=== PATIENT | female | born 1980 | race Caucasian/White ===

== ENCOUNTER 2016-12-04 19:23 | Emergency (ER) | payer MEDICAID, OTHER ==
[~2016-12-04] VITALS: Ht 167.6 cm; Wt 92.0 kg
[~2016-12-04 19:23] MED LIST: BENZ100 PO; DIFL150T PO; GLIP10TA6 PO; GLUC1000 PO; ZITH250T PO
[2016-12-04 19:25] VITALS: BP 131/72; PULSE 90; RESP 16; TEMP 97.8; O2SAT 97
[2016-12-04] MEDS ORDERED: GLIP10TA6 PO (19:39)
[2016-12-04] MEDS ORDERED: NOVO7030P2 SQ (19:39)
[2016-12-04] MEDS ORDERED: METF1000 PO (19:39)
[2016-12-04] MEDS ORDERED: KETOROLAC TROMETHAMINE 60 MG/2 ML (IM) VIAL IM ONE (19:45)
[2016-12-04] MEDS ORDERED: ACETAMINOPHEN/CODEINE 300 MG/30 MG TAB PO ONE (19:45)
[2016-12-04] MEDS ORDERED: ONDANSETRON ODT 4 MG TAB PO ONE (19:45)
[2016-12-04] MEDS ORDERED: ORPHENADRINE INJ 60 MG/2 ML AMP IM ONE (19:45)
--- NOTE | 2016-12-04 19:48 | PD ---
HPI Chief Complaint: Pain: Acute or Chronic Time Seen by Provider: 19:38 Travel History International Travel<30 days: No Contact w/Intl Traveler<30days: No Traveled to known affect area: No History of Present Illness HPI This is an insulin-dependent diabetic woman who presents for evaluation of neck pain. Symptoms started 2 weeks ago. The pain in the neck radiates down the left arm into the left third finger. The pain is a sharp/shooting pain that is worse with overhead reaching and movement of the neck. She denies any major trauma. She does not recall any specific mechanism of injury however she does not the chest to lift her young child on a regular basis. She has tried using [id number] ibuprofen but symptoms persisted. She saw her primary care physician yesterday who prescribed her prescription strength ibuprofen as well as a muscle relaxant. She has not yet picked these medications up from the pharmacy. She presents now with continued pain. She denies any weakness, chest pain, shortness of breath, focal neurologic deficit. She has no other complaints at this time. [facility] Past Medical History Diabetes: Yes (INSULIN DEPENDENT/METFORMIN/GLIPIZIDE) Patient Takes Glucophage: Yes ?: Not : 4 Para: 3 Miscarriage: 1 Past Surgical History Section: Yes (x2 ) Social History Alcohol Use: No Tobacco Use: No Substance Use: No Allergies-Medications (Allergen,Severity, Reaction): Coded Allergies: No Known Allergies (Unverified , 12/04/16) Reported Meds & Prescriptions Reported Meds & Active Scripts Active Reported Novolin 70-30 Inj (Insulin Human Isoph/Insulin Regular) 1,000 Unit/10 Ml Vial 13 Units SQ AM Metformin (Metformin HCl) 1,000 Mg Tab 1,000 Mg PO BID With a meal Glipizide 10 Mg Tab 10 Mg PO BIDAC Take 30 minutes before a meal Review of Systems Except as stated in HPI: all other systems reviewed are Neg Physical Exam Narrative GENERAL: Well-developed well-nourished female in no acute distress SKIN: Warm and dry. HEAD: Atraumatic. Normocephalic. EYES: Pupils equal and round. No scleral icterus. No injection or drainage. ENT: No nasal bleeding or discharge. Mucous membranes pink and moist. NECK: Trachea midline. No JVD. No lymphadenopathy. CARDIOVASCULAR: Regular rate and rhythm. No murmur appreciated. RESPIRATORY: No accessory muscle use. Clear to auscultation. Breath sounds equal bilaterally. GASTROINTESTINAL: Abdomen soft, non-tender, nondistended. MUSCULOSKELETAL: No obvious deformities. There is tenderness to palpation along the cervical paravertebral musculature. The patient has normal muscle strength in the upper extremities, normal leadership development instructor strength, 5 out of 5 muscle strength in flexion and extension, shoulder abduction and adduction. Negative empty can test. There is no upper extremity edema. 2+ radial pulses bilaterally, capillary refill less than 2 seconds in all fingers. NEUROLOGICAL: Awake and alert. No obvious cranial nerve deficits. Motor grossly within normal limits. Normal speech. Data Data Last Documented VS Vital Signs Date Time Temp Pulse Resp B/P Pulse Ox O2 Delivery O2 Flow Rate FiO2 12/04/16 19:25 97.8 90 16 131/72 97 Room Air Orders Ketorolac Inj (Toradol Inj) (12/04/16 19:45) Orphenadrine Inj (Norflex Inj) (12/04/16 19:45) Acetamin-Codeine 300-30 Mg (Tylenol-Code (12/04/16 19:45) Ondansetron Odt (Zofran Odt) (12/04/16 19:45) MDM Medical Decision Making Medical Screen Exam Complete: Yes Emergency Medical Condition: Yes Medical Record Reviewed: Yes Differential Diagnosis Herniated nucleus pulposus, cervical strain, thoracic outlet syndrome, muscle spasm, rotator cuff pathology Narrative Course 35-year-old female with a 2 week duration of neck pain that radiates down the left arm, worse with use of the left arm. Her history and examination findings are consistent with cervical radiculopathy. There was no trauma to suggest bony pathology. She has no weakness to suggest a central spinal cord lesion. The plan would be to treat the patient symptomatically here with NSAIDs, muscle relaxants, Tylenol with Codeine. Steroids will be avoided given her history of insulin-dependent diabetes. She is encouraged to follow-up with her primary care physician to discuss further treatment if symptoms persist such as physical therapy versus outpatient MRI imaging. She is stable for discharge. Diagnosis Primary Impression: Cervical radiculopathy Additional Instructions: Use the medications that have been prescribed by your primary care physician. Follow-up with your primary care physician in one to 2 weeks if symptoms persist. Return for any emergent medical conditions. Med/Other Pt SpecificInfo: No Change to Meds Disposition: 01 DISCHARGE HOME Condition: Stable Aguilar Lopez Dec 04, 2016 19:48
[2016-12-04 20:31] VITALS: RESP 18
== END 2016-12-04 20:32 | disposition home or self-care (01) ==
LOC: NEPB 19:23
DX: M54.12 Radiculopathy, cervical region (principal); E11.9 Type 2 diabetes mellitus without complications; Z79.4 Long term (current) use of insulin
CPT/HCPCS: 96372; 99283; J1885; J2360

== ENCOUNTER 2017-01-05 18:22 | Emergency (ER) | payer MEDICAID, OTHER ==
[~2017-01-05] VITALS: Ht 167.6 cm; Wt 88.6 kg
[~2017-01-05 18:22] MED LIST changes: -BENZ100 PO; -DIFL150T PO; -GLUC1000 PO; +METF1000 PO; +NOVO7030P2 SQ; -ZITH250T PO
[2017-01-05 18:23] VITALS: BP 167/92; PULSE 106; RESP 14; TEMP 98.2; O2SAT 97
--- NOTE | 2017-01-05 18:57 | RADRPT ---
EXAM DATE/TIME: 01/05/2017 18:50 [facility] COMPARISON: No previous studies available for comparison. INDICATIONS : Chest pain. MEDICAL HISTORY : None. SURGICAL HISTORY : None. ENCOUNTER: Initial ACUITY: 1 week PAIN SCORE: 5/10 LOCATION: Bilateral chest FINDINGS: A single view of the chest demonstrates the lungs to be symmetrically aerated without evidence of mas s, infiltrate or effusion. The cardiomediastinal contours are unremarkable. Osseous structures are intact. CONCLUSION: No acute disease. Yash Baird MD on January 05, 2017 at 18:55 Board Certified Radiologist. This report was verified electronically.
--- NOTE | 2017-01-05 19:37 | PD ---
HPI Chief Complaint: Chest Pain Time Seen by Provider: 19:33 Travel History International Travel<30 days: No Contact w/Intl Traveler<30days: No Traveled to known affect area: No History of Present Illness HPI Patient is a 36-year-old female presenting to emergency department for evaluation of elevated blood pressure readings as well as chest pressure. Patient states the chest pressure started on 5 days ago. She states that it comes and goes it is not exacerbated by activity. She does report some shortness of breath at night as well as a frontal headache. This is also intermittent. Patient states that her blood pressure readings at home have been in the upper 130s over 90s. She does report a history of type 2 diabetes, she reports losing 15 pounds and her fasting blood sugars have been in the 70s to 80s in the morning. She recently saw her primary doctor Dr. Vargas. She has not discussed the blood pressure readings or the chest pain with him. She states at worst the pain is an 8 out of 10, she also reports palpitations that are intermittent. PFSH Past Medical History Diabetes: Yes (INSULIN DEPENDENT/METFORMIN/GLIPIZIDE) GERD: Yes Headaches: Yes ?: Not LMP: 12/24/2016 : 4 Para: 3 Miscarriage: 1 Past Surgical History Section: Yes (x2 ) Social History Alcohol Use: No Tobacco Use: No Substance Use: No Allergies-Medications (Allergen,Severity, Reaction): Coded Allergies: No Known Allergies (Unverified , 01/05/17) Reported Meds & Prescriptions Reported Meds & Active Scripts Active Reported Metformin (Metformin HCl) 1,000 Mg Tab 1,000 Mg PO BID With a meal Glipizide 10 Mg Tab 10 Mg PO BIDAC Take 30 minutes before a meal Review of Systems Except as stated in HPI: all other systems reviewed are Neg Cardiovascular: Positive: Chest Pain or Discomfort, Palpitations Respiratory: Positive: Shortness of Breath (occasionally at night) Physical Exam Narrative GENERAL: Well-developed, well-nourished, alert female. Resting comfortably in no acute distress. SKIN: Warm and dry. HEAD: Atraumatic. Normocephalic. EYES: Pupils equal and round. No scleral icterus. No injection or drainage. ENT: No nasal bleeding or discharge. Mucous membranes pink and moist. NECK: Trachea midline. No JVD. CARDIOVASCULAR: Regular rate and rhythm. No murmur appreciated. RESPIRATORY: No accessory muscle use. Clear to auscultation. Breath sounds equal bilaterally. GASTROINTESTINAL: Abdomen soft, non-tender, nondistended. Hepatic and splenic margins not palpable. MUSCULOSKELETAL: No obvious deformities. No clubbing. No cyanosis. No edema. NEUROLOGICAL: Awake and alert. No obvious cranial nerve deficits. Motor grossly within normal limits. Normal speech. PSYCHIATRIC: Appropriate mood and affect; insight and judgment normal. Data Data Last Documented VS Vital Signs Date Time Temp Pulse Resp B/P Pulse Ox O2 Delivery O2 Flow Rate FiO2 01/05/17 22:20 77 16 142/86 99 Room Air 01/05/17 18:23 98.2 Orders Electrocardiogram (01/05/17 18:28) Complete Blood Count With Diff (01/05/17 18:28) Basic Metabolic Panel (Bmp) (01/05/17 18:28) Ckmb (Isoenzyme) Profile (01/05/17 18:28) Troponin I (01/05/17 18:28) Chest, Single Ap (01/05/17 18:28) Thyroid Stimulating Hormone (01/05/17 19:17) Al-Mag Hy-Si 40-40-4 Mg/Ml Liq (Mag-Al P (01/05/17 22:45) Lidocaine 2% Viscous (Xylocaine 2% Visco (01/05/17 22:45) Labs Laboratory Tests Test 01/05/17 20:05 White Blood Count 10.8 TH/MM3 Red Blood Count 4.44 MIL/MM3 Hemoglobin 12.7 GM/DL Hematocrit 36.8 % Mean Corpuscular Volume 82.9 FL Mean Corpuscular Hemoglobin 28.6 PG Mean Corpuscular Hemoglobin 34.5 % Concent Red Cell Distribution Width 14.1 % Platelet Count 334 TH/MM3 Mean Platelet Volume 7.9 FL Neutrophils (%) (Auto) 63.1 % Lymphocytes (%) (Auto) 31.9 % Monocytes (%) (Auto) 4.3 % Eosinophils (%) (Auto) 0.4 % Basophils (%) (Auto) 0.3 % Neutrophils # (Auto) 6.8 TH/MM3 Lymphocytes # (Auto) 3.5 TH/MM3 Monocytes # (Auto) 0.5 TH/MM3 Eosinophils # (Auto) 0.0 TH/MM3 Basophils # (Auto) 0.0 TH/MM3 CBC Comment DIFF FINAL Differential Comment Sodium Level 139 MEQ/L Potassium Level 3.5 MEQ/L Chloride Level 104 MEQ/L Carbon Dioxide Level 27.8 MEQ/L Anion Gap 7 MEQ/L Blood Urea Nitrogen 6 MG/DL Creatinine 0.50 MG/DL Estimat Glomerular Filtration 140 ML/MIN Rate Random Glucose 113 MG/DL Calcium Level 9.3 MG/DL Total Creatine Kinase 84 U/L Troponin I LESS THAN 0.02 NG/ML Thyroid Stimulating Hormone 1.380 uIU/ML 3rd Gen [facility] Medical Decision Making Medical Screen Exam Complete: Yes Emergency Medical Condition: Yes Interpretation(s) Last Impressions Chest X-Ray 01/05/17 1828 Signed Impressions: Service Date/Time: Thursday, January 05, 2017 18:50 - CONCLUSION: No acute disease. Yash Baird MD Vital Signs Date Time Temp Pulse Resp B/P Pulse Ox O2 Delivery O2 Flow Rate FiO2 01/05/17 18:23 98.2 106 14 167/92 97 Room Air Differential Diagnosis Atypical chest pain versus AMI versus palpitations versus anxiety versus other Narrative Course Patient is a 36-year-old female presenting to the emergency department for evaluation of chest pressure and elevated blood pressure readings. Patient has not had a formal diagnosis of hypertension. Her blood pressure readings have been in the 130s systolic. She presented due to the chest pressure. Labs and imaging ordered and pending. EKG shows normal sinus rhythm with a rate of 87. Chest x-ray shows no acute disease. Patient will be transferred to medical bed when available. Patient is resting comfortably currently. Carol Riddle Jan 05, 2017 19:37
[2017-01-05 20:30] LABS: AUTOMATED NEUTROPHIL # 6.8 TH/MM3 (1.8-7.7); BASOPHIL % 0.3 % (0.0-2.0); EOSINOPHIL % 0.4 % (0.0-4.0); HEMATOCRIT 36.8 % (35.0-46.0); HEMO FLAGS DIFF FINAL; LYMPH % 31.9 % (9.0-44.0); LYMPHOCYTE # 3.5 TH/MM3 (1.0-4.8); MEAN CELL VOLUME 82.9 FL (80.0-100.0); MEAN CORPUSCULAR HEMOGLOBIN 28.6 PG (27.0-34.0); MEAN CORPUSCULAR HGB CONC 34.5 % (32.0-36.0); MONO % 4.3 % (0.0-8.0); NEUT % 63.1 % (16.0-70.0); PLATELET COUNT 334 TH/MM3 (150-450); RED BLOOD COUNT 4.44 MIL/MM3 (4.00-5.30); RED CELL DISTRIBUTION WIDTH 14.1 % (11.6-17.2); WHITE BLOOD COUNT 10.8 TH/MM3 (4.0-11.0)
[2017-01-05 20:44] LABS: ANION GAP 7 MEQ/L (5-15); BICARBONATE 27.8 MEQ/L (21.0-32.0); BLOOD UREA NITROGEN 6 MG/DL (7-18); CHLORIDE 104 MEQ/L (98-107); GLOMERULAR FILTRATION RATE 140 ML/MIN (>89); POTASSIUM 3.5 MEQ/L (3.5-5.1); SODIUM (NA) 139 MEQ/L (136-145)
[2017-01-05 20:50] LABS: CREATINE KINASE 84 U/L (26-192)
[2017-01-05 22:20] VITALS: BP 142/86; PULSE 77; RESP 16; O2SAT 99
--- NOTE | 2017-01-05 22:33 | PD ---
Data Data Last Documented VS Vital Signs Date Time Temp Pulse Resp B/P Pulse Ox O2 Delivery O2 Flow Rate FiO2 01/05/17 22:20 77 16 142/86 99 Room Air 01/05/17 18:23 98.2 Orders Electrocardiogram (01/05/17 18:28) Complete Blood Count With Diff (01/05/17 18:28) Basic Metabolic Panel (Bmp) (01/05/17 18:28) Ckmb (Isoenzyme) Profile (01/05/17 18:28) Troponin I (01/05/17 18:28) Chest, Single Ap (01/05/17 18:28) Thyroid Stimulating Hormone (01/05/17 19:17) Al-Mag Hy-Si 40-40-4 Mg/Ml Liq (Mag-Al P (01/05/17 22:45) Lidocaine 2% Viscous (Xylocaine 2% Visco (01/05/17 22:45) Labs Laboratory Tests Test 01/05/17 20:05 White Blood Count 10.8 TH/MM3 Red Blood Count 4.44 MIL/MM3 Hemoglobin 12.7 GM/DL Hematocrit 36.8 % Mean Corpuscular Volume 82.9 FL Mean Corpuscular Hemoglobin 28.6 PG Mean Corpuscular Hemoglobin 34.5 % Concent Red Cell Distribution Width 14.1 % Platelet Count 334 TH/MM3 Mean Platelet Volume 7.9 FL Neutrophils (%) (Auto) 63.1 % Lymphocytes (%) (Auto) 31.9 % Monocytes (%) (Auto) 4.3 % Eosinophils (%) (Auto) 0.4 % Basophils (%) (Auto) 0.3 % Neutrophils # (Auto) 6.8 TH/MM3 Lymphocytes # (Auto) 3.5 TH/MM3 Monocytes # (Auto) 0.5 TH/MM3 Eosinophils # (Auto) 0.0 TH/MM3 Basophils # (Auto) 0.0 TH/MM3 CBC Comment DIFF FINAL Differential Comment Sodium Level 139 MEQ/L Potassium Level 3.5 MEQ/L Chloride Level 104 MEQ/L Carbon Dioxide Level 27.8 MEQ/L Anion Gap 7 MEQ/L Blood Urea Nitrogen 6 MG/DL Creatinine 0.50 MG/DL Estimat Glomerular Filtration 140 ML/MIN Rate Random Glucose 113 MG/DL Calcium Level 9.3 MG/DL Total Creatine Kinase 84 U/L Troponin I LESS THAN 0.02 NG/ML Thyroid Stimulating Hormone 1.380 uIU/ML 3rd Gen [facility] Medical Record Reviewed: Yes Supervised Visit with KATT: Yes Narrative Course I, Dr. Macdonald, have reviewed the advance practice practitioner's documentation and am in agreemen unless otherwise dictated below, met with the patient face to face, made the diagnosis, and the medical decision making was done by me. *My assessment and Findings: The patient is 36 years old when she's had chest pain intermittently for about 1 week. She's also had palpitations Aminata racing heart. She denies any history of anxiety/panic attacks. She does not smoke or suffer with hyperlipidemia. Of late her blood pressure has been slightly elevated as measured with routine daily home checks. Patient has well controlled type 2 diabetes. Today's chest pain is 8/10 in severity at its maximum. Started while she was cleaning and doing laundry at home. Radiation to the left neck was observed however she reports similar episodes of neck pain in the past which responded well to muscle relaxers. Over the course of the last week or so the episodes palpitations have been intermittent. They tend to improve after the patient's down. She has no history of early onset coronary artery disease. Finally she complains of a reflux esophagitis type of burning in the hypopharynx. This has been present for about 3 days and is worse. The notes the patient has been eating quite a bit of spicy peanuts lately. CBC & BMP Diagram 01/05/17 20:05 Tn < 0.02 EKG: Sinus, normal rate and rhythm, no evidence acute ischemia Last 24 hours Impressions Chest X-Ray 01/05/17 4786 Signed Impressions: Service Date/Time: Thursday, January 05, 2017 18:50 - CONCLUSION: No acute disease. Yash Baird MD Overall the patient is quite well-appearing and I doubt she has occlusive coronary disease. Nonetheless a stress test can be performed as an outpatient within the next week or so. We discussed diet and lifestyle modification. We discussed specifically diet modification for GERD. We provide a GI cocktail here. She has good outside follow-up. The patient may benefit from a beta williams in the future however it's considered safely deferable this time. Return precautions discussed and the patient is ready fo discharge. Diagnosis Primary Impression: Chest pain Qualified Code: R07.9 - Chest pain, unspecified type Additional Impressions: Hypertension Qualified Code: I10 - Essential hypertension Palpitations GERD (gastroesophageal reflux disease) Qualified Code: K21.9 - Gastroesophageal reflux disease, esophagitis presence not specified Referrals: DR FLORES 2 days Additional Instruction: You have a choice when it comes to health care, and we are glad that you chose [facility]. Hopefully, we have met your expectations on today's visit. You are welcome to return to [facility] at any time, as we are committed to meeting the health care needs of our community. Med/Other Pt SpecificInfo: No Change to Meds Disposition: DISCHARGE HOME Condition: Beto Guy MD Jan 05, 2017 22:33
[2017-01-05] MEDS ORDERED: LIDOCAINE VISCOUS 2% SOLN 15 ML UDC PO ONE (22:45)
[2017-01-05] MEDS ORDERED: ALUMINUM/MAGNESIUM/SIMETH 30 ML CUP PO ONE (22:45)
--- NOTE | 2017-01-06 11:24 | EKG ---
Date Performed: 01/05/2017 Time Performed: 18:33:42 PTAGE: 36 years EKG: Sinus rhythm NONSPECIFIC T WAVE FLATTENING BORDERLINE ECG NO PREVIOUS TRACING DOCTOR: Yrn Terrazas Interpretating Date/Time 01/06/2017 11:23:27
== END 2017-01-05 22:50 | disposition home or self-care (01) ==
LOC: NEPE 18:22
DX: K21.9 Gastro-esophageal reflux disease without esophagitis (principal); R07.9 Chest pain, unspecified; E11.9 Type 2 diabetes mellitus without complications; I10 Essential (primary) hypertension; Z79.4 Long term (current) use of insulin
CPT/HCPCS: 71010; 80048; 82550; 84443; 84484; 85025; 93005

== ENCOUNTER 2017-05-29 16:01 | Emergency (ER) | payer MEDICAID ==
[~2017-05-29] VITALS: Ht 162.6 cm; Wt 90.0 kg
[~2017-05-29 16:01] MED LIST changes: -NOVO7030P2 SQ
[2017-05-29 16:03] VITALS: BP 137/85; PULSE 90; RESP 20; TEMP 99; O2SAT 99
--- NOTE | 2017-05-29 16:12 | PD ---
Physical Exam Time Seen by Provider: 16:10 Narrative 36yo F, 8 weeks , c/o vag bleeding and lower abd cramping since yesterday. Reports worsening of vag bleeding today. Patient seen in triage. VS reviewed. Awaiting bed placement. Data Data Last Documented VS Vital Signs Date Time Temp Pulse Resp B/P Pulse Ox O2 Delivery O2 Flow Rate FiO2 05/29/17 16:03 99.0 90 20 137/85 99 Room Air MDM Supervised Visit with KATT: Shari Bear May 29, 2017 16:12
[2017-05-29] MEDS ORDERED: PREN29TA PO (16:22)
--- NOTE | 2017-05-29 16:33 | PD ---
HPI Chief Complaint: Related Problem Time Seen by Provider: 16:29 Travel History International Travel<30 days: No Contact w/Intl Traveler<30days: No Traveled to known affect area: No History of Present Illness HPI 36-year-old female presents to the emergency department for evaluation of vaginal bleeding during that started approximately 2 hours ago. Patient states she is a G5, P3 with one previous miscarriage. Patient states she saw her wax pattern assembler yesterday and scheduled an outpatient ultrasound, but she has not had it done yet. Patient denies any fevers or chills. No chest pain or shortness of breath. She reports associated abdominal cramping. No urinary symptoms. Patient is unsure of what blood type she is. She reports being 8 weeks . Last menstrual cycle was March 21. PFSH Past Medical History Diabetes: Yes (metformin) Patient Takes Glucophage: Yes (METFORMIN AND GLIPIZIED DAILY ) GERD: Yes Headaches: Yes Immunizations Current: Yes ?: : 4 Para: 3 Miscarriage: 1 Past Surgical History Section: Yes (x2 ) Social History Alcohol Use: No Tobacco Use: No Substance Use: No Allergies-Medications (Allergen,Severity, Reaction): Coded Allergies: No Known Allergies (Unverified , 05/29/17) Reported Meds & Prescriptions Reported Meds & Active Scripts Active Reported Plus Iron 29-1 mg ( Vit-Iron Carbonyl) 1 Tab Tab 1 Tab PO DAILY Metformin (Metformin HCl) 1,000 Mg Tab 1,000 Mg PO BID With a meal Glipizide 10 Mg Tab 10 Mg PO BIDAC Take 30 minutes before a meal Review of Systems Except as stated in HPI: all other systems reviewed are Neg Physical Exam Narrative GENERAL: Well-nourished, well-developed female patient, ambulatory. Afebrile. SKIN: Focused skin assessment warm/dry. HEAD: Normocephalic. Atraumatic. EYES: No scleral icterus. No injection or drainage. NECK: Supple, trachea midline. No JVD or lymphadenopathy. CARDIOVASCULAR: Regular rate and rhythm without murmurs, gallops, or rubs. RESPIRATORY: Breath sounds equal bilaterally. No accessory muscle use. Lungs sounds clear to auscultation. GASTROINTESTINAL: Abdomen soft and nondistended. Patient has pelvic tenderness to palpation. MUSCULOSKELETAL: No cyanosis, or edema. BACK: Nontender without obvious deformity. No CVA tenderness. GENITOURINARY: Normal external genitalia without lesions or erythema. Vaginal vault with blood clots and possible products of conception noted. Cervical os was open. No cervical motion tenderness. Uterus nontender and nonenlarged. Bilateral adnexa nontender without masses. This exam was done with CECE Garcia, at bedside. Data Data Last Documented VS Vital Signs Date Time Temp Pulse Resp B/P Pulse Ox O2 Delivery O2 Flow Rate FiO2 05/29/17 19:00 76 16 120/63 99 Room Air 05/29/17 16:03 99.0 Orders Beta Hcg (Quant/Titer) (05/29/17 16:27) Complete Blood Count With Diff (05/29/17 16:27) Basic Metabolic Panel (Bmp) (05/29/17 16:27) Complete Rh (05/29/17 16:27) Urinalysis - C+S If Indicated (05/29/17 16:27) Ed Urine Pregnancytest Poc (05/29/17 16:27) Sodium Chlor 0.9% 1000 Ml Inj (Ns 1000 M (05/29/17 17:45) Us Pelvis (Ques Pr/Ect)W Trans (05/29/17 ) Acetaminophen (Tylenol) (05/29/17 18:30) Labs Laboratory Tests Test 05/29/17 05/29/17 16:45 16:50 Urine Color YELLOW Urine Turbidity HAZY Urine pH 8.0 Urine Specific [place] 1.021 Urine Protein 30 mg/dL Urine Glucose (UA) 1000 mg/dL Urine Ketones NEG mg/dL Urine Occult Blood LARGE Urine Nitrite NEG Urine Bilirubin NEG Urine Urobilinogen LESS THAN 2.0 MG/DL Urine Leukocyte Esterase NEG Urine RBC /hpf Urine Squamous Epithelial 1 /hpf Cells Microscopic Urinalysis Comment CULT NOT INDICATED White Blood Count 8.8 TH/MM3 Red Blood Count 4.40 MIL/MM3 Hemoglobin 12.4 GM/DL Hematocrit 37.2 % Mean Corpuscular Volume 84.6 FL Mean Corpuscular Hemoglobin 28.2 PG Mean Corpuscular Hemoglobin 33.4 % Concent Red Cell Distribution Width 15.1 % Platelet Count 265 TH/MM3 Mean Platelet Volume 7.9 FL Neutrophils (%) (Auto) 62.8 % Lymphocytes (%) (Auto) 30.8 % Monocytes (%) (Auto) 4.8 % Eosinophils (%) (Auto) 1.2 % Basophils (%) (Auto) 0.4 % Neutrophils # (Auto) 5.5 TH/MM3 Lymphocytes # (Auto) 2.7 TH/MM3 Monocytes # (Auto) 0.4 TH/MM3 Eosinophils # (Auto) 0.1 TH/MM3 Basophils # (Auto) 0.0 TH/MM3 CBC Comment DIFF FINAL Differential Comment Sodium Level 137 MEQ/L Potassium Level 4.3 MEQ/L Chloride Level 104 MEQ/L Carbon Dioxide Level 25.6 MEQ/L Anion Gap 7 MEQ/L Blood Urea Nitrogen 7 MG/DL Creatinine 0.52 MG/DL Estimat Glomerular Filtration 133 ML/MIN Rate Random Glucose 247 MG/DL Calcium Level 8.8 MG/DL Human Chorionic Gonadotropin, 1149 MIU/ML Quant Blood Type O POSITIVE Rho(D) Type POSITIVE MDM Medical Decision Making Medical Screen Exam Complete: Yes Emergency Medical Condition: Yes Medical Record Reviewed: Yes Interpretation(s) Last Impressions Pelvis Ultrasound 05/29/17 0000 Signed Impressions: Service Date/Time: Monday, May 29, 2017 16:53 - CONCLUSION: Probable very early intrauterine , threatened. I cannot confirm without cardiac activity. Follow up is suggested. Amaury Estrada MD FACR Differential Diagnosis Intrauterine versus spontaneous miscarriage versus UTI Narrative Course 36 year old female presents to the emergency department for evaluation of vaginal bleeding, pelvic cramping. She reports being 8 weeks . Last menstrual cycle was March 21. CBC, BMP, beta hCG, UA, urine test, complete Rh are ordered and pending. Ultrasound is ordered and pending. CBC is unremarkable. BMP shows elevated glucose of 247. Beta HCG is 1149. UA shows large occult blood. UPT is positive. US shows probable very early intrauterine , threatened. I cannot confirm without cardiac activity. Follow up is suggested. Pelvic was done after US with large blood and possible products of conception in vaginal canal. Physical is consistent with spontaneous . After pelvic, patient states the bleeding is mild at this time. Patient is instructed to return in 48 hours to repeat hCG and repeat examination. She verbalizes agreement. She is to return sooner for any acute worsening of symptoms. My attending physician, Dr. Jane, agrees with plan and disposition. Diagnosis Primary Impression: Spontaneous miscarriage Referrals: [facility] call for appointment Patient Instructions: General Instructions, Miscarriage (ED) Additional Instructions: Over the counter Tylenol every 4 hours for pain. Return here in 48 hours (Thursday evening) for repeat Beta HCG and re-examination. Return to the emergency department for any acute, worsening of symptoms. Med/Other Pt SpecificInfo: No Change to Meds Disposition: 01 DISCHARGE HOME Condition: Stable Kurt,Jyoti DUMAS May 29, 2017 16:33
[2017-05-29 17:18] LABS: AUTOMATED NEUTROPHIL # 5.5 TH/MM3 (1.8-7.7); BASOPHIL % 0.4 % (0.0-2.0); EOSINOPHIL # 0.1 TH/MM3 (0-0.4); EOSINOPHIL % 1.2 % (0.0-4.0); HEMATOCRIT 37.2 % (35.0-46.0); HEMO FLAGS DIFF FINAL; LYMPH % 30.8 % (9.0-44.0); LYMPHOCYTE # 2.7 TH/MM3 (1.0-4.8); MEAN CELL VOLUME 84.6 FL (80.0-100.0); MEAN CORPUSCULAR HEMOGLOBIN 28.2 PG (27.0-34.0); MEAN CORPUSCULAR HGB CONC 33.4 % (32.0-36.0); MONO % 4.8 % (0.0-8.0); NEUT % 62.8 % (16.0-70.0); PLATELET COUNT 265 TH/MM3 (150-450); RED CELL DISTRIBUTION WIDTH 15.1 % (11.6-17.2); WHITE BLOOD COUNT 8.8 TH/MM3 (4.0-11.0)
[2017-05-29 17:32] LABS: BLOOD, URINE LARGE (NEG); COMMENT (UR) CULT NOT INDICATED; CULTURE IF INDICATED CULT NOT INDICATED; GLUCOSE,URINE 1000 mg/dL (NEG); KETONE, URINE NEG (NEG); NITRITE,URINE NEG (NEG); SQUAMOUS EPITHELIAL CELL URINE 1 /hpf (0-5); URINE COLOR YELLOW (YELLW/STRAW)
[2017-05-29 17:41] LABS: BICARBONATE 25.6 MEQ/L (21.0-32.0); POTASSIUM 4.3 MEQ/L (3.5-5.1)
[2017-05-29] MEDS ORDERED: SODIUM CHLOR 0.9% 1000 ML INJ 1,000 ML IV ONE (17:45)
--- NOTE | 2017-05-29 18:28 | RADRPT ---
EXAM DATE/TIME: 05/29/2017 16:53 [facility] COMPARISON: No previous studies available for comparison. INDICATIONS : Vaginal bleeding during . LAB(S): Beta-hC MEDICAL HISTORY : Gastroesophageal reflux disease. . Headaches. Diabetes. SURGICAL HISTORY : section. ENCOUNTER: Initial ACUITY: 1 day PAIN SCORE: 4/10 LOCATION: Bilateral pelvis MEASUREMENTS: UTERUS: 9.2 x 7.2 x 6.1 cm ENDOMETRIAL STRIPE: 8 mm RIGHT OVARY: 4.6 x 2.7 x 2.9 cm LEFT OVARY: 3.7 x 1.8 x 1.8 cm CROWN RUMP LENGTH: 0.2 cm = 5 WKS 5 DAYS FINDINGS: UTERUS: There may be very early intrauterine gestational cannot identify cardiac activity. RIGHT OVARY: 1.8 cm cyst LEFT OVARY: 2.7 cm cyst MISCELLANEOUS: No free fluid. Minimal debris is present in the cervix. CONCLUSION: Probable very early intrauterine , threatened. I cannot confirm without cardiac activity. Follow up is suggested. Amaury Estrada MD FACR on May 29, 2017 at 18:24 Board Certified Radiologist. This report was verified electronically.
[2017-05-29] MEDS ORDERED: ACETAMINOPHEN 325 MG TAB PO ONE (18:30)
[2017-05-29 19:00] VITALS: BP 120/63; PULSE 76; RESP 16; O2SAT 99
== END 2017-05-29 19:41 | disposition home or self-care (01) ==
LOC: NEPD 16:01
DX: O03.9 Complete or unspecified spontaneous abortion without complication (principal); O24.911 Unspecified diabetes mellitus in pregnancy, first trimester; K21.9 Gastro-esophageal reflux disease without esophagitis; Z3A.08 8 weeks gestation of pregnancy; Z79.899 Other long term (current) drug therapy; Z34.91 Encounter for supervision of normal pregnancy, unspecified, first trimester
CPT/HCPCS: 76700; 76817; 80048; 81001; 84702; 84703; 85025; 86901; 88305; 96360; 99285; J7030

== ENCOUNTER 2017-05-31 18:10 | Emergency (ER) | payer MEDICAID ==
[~2017-05-31] VITALS: Ht 167.6 cm; Wt 90.0 kg
[~2017-05-31 18:10] MED LIST changes: +PREN29TA PO
[2017-05-31 18:12] VITALS: BP 135/78; PULSE 99; RESP 18; TEMP 98.2; O2SAT 99
--- NOTE | 2017-05-31 22:53 | PD ---
HPI Chief Complaint: Medical Clearance Time Seen by Provider: 22:38 Travel History International Travel<30 days: No Contact w/Intl Traveler<30days: No Traveled to known affect area: No History of Present Illness HPI The patient is a 36 year old female who presents to the [facility] emergency department with a history of reportedly starting to have vaginal bleeding on Thursday. The patient came to the emergency department related to this as she reports that she is approximately 8 weeks with her last menstrual cycle on March 21. The patient was diagnosed with a threatened miscarriage at that time. Her ultrasound on May 29 revealed what appeared to be a probable very early intrauterine , no cardiac activity was able to be identified with minimal debris noted in the cervix. The patient's quantitative beta hCG at that time was noted to be 1149. The patient's blood type was noted to be O+. The patient reports that she has been 5 times. She has had 3 deliveries, 2 prior C-sections. The patient reports that since she was seen in the emergency department on May 29 her vaginal bleeding has increased. She reports that the cramping has diminished. She denies having any chest pain, chest pressure, shortness of breath, or lightheaded sensation. She reports that her nurse receptionist isn't Deedee. She is followed by Dr. Lai. Otherwise on review of systems, the patient denies any fevers, cough, congestion, neck pain, chest pain, shortness of breath, vomiting, diarrhea, urinary symptoms, or neurologic symptoms. LMP: March 21. [facility] Past Medical History Narrative Medical The patient's past medical history is significant for diabetes mellitus, acid reflux, headaches. The patient reports that she last checked her blood sugar at 5 PM and was 143. Diabetes: Yes (metformin) GERD: Yes Headaches: Yes Immunizations Current: Yes : 5 Para: 3 Miscarriage: 1 Past Surgical History Narrative Surgical The patient's past surgical history is significant for 2 prior C-sections. Section: Yes (x2 ) Social History Alcohol Use: No Tobacco Use: No Substance Use: No Allergies-Medications (Allergen,Severity, Reaction): Coded Allergies: No Known Allergies (Unverified , 05/31/17) Reported Meds & Prescriptions Reported Meds & Active Scripts Active Reported Metformin (Metformin HCl) 1,000 Mg Tab 1,000 Mg PO BID With a meal Glipizide 10 Mg Tab 10 Mg PO BIDAC Take 30 minutes before a meal Review of Systems Except as stated in HPI: all other systems reviewed are Neg General / Constitutional: No: Fever Eyes: No: Visual changes HENT: No: Headaches Cardiovascular: No: Chest Pain or Discomfort Respiratory: No: Shortness of Breath Gastrointestinal: No: Nausea, Vomiting, Diarrhea, Abdominal Pain Genitourinary: Positive: Pelvic Pain, Vaginal Bleeding, No: Dysuria Musculoskeletal: No: Pain Skin: No Rash Neurologic: No: Weakness Psychiatric: No: Depression Endocrine: No: Polydipsia Hematologic/Lymphatic: No: Easy Bruising Physical Exam Narrative General: The patient is a well-developed well-nourished female in no acute distress. Head and Neck exam: Head is normocephalic atraumatic. Eyes: EOMI, pupils are equal round and reactive to light. Nose: Midline septum with pink mucous membranes Mouth: Dentition unremarkable. Moist mucus membranes. Posterior oropharynx is not erythematous. No tonsillar hypertrophy. Uvula midline. Airway patent. Neck: No palpable lymphadenopathy. No nuchal rigidity. No thyromegaly. Cardiovascular: No pulse deficit to the extremities. Lungs: Clear to auscultation bilaterally. No wheezes, rhonchi, or rales. Abdomen: Soft, without tenderness to palpation in all 4 quadrants of the abdomen. No guarding, rebound, or rigidity. Normal bowel sounds are audible. No tenderness on palpation of McBurney's point. Extremities: No clubbing, cyanosis, or edema. 2+ pulses in all 4 extremities. No calf tenderness on palpation. Back: No costovertebral angle tenderness to palpation. Neurologic Exam: Grossly nonfocal. Skin Exam: No rash noted. Intact skin that is warm and dry. Data Data Last Documented VS Vital Signs Date Time Temp Pulse Resp B/P Pulse Ox O2 Delivery O2 Flow Rate FiO2 05/31/17 22:58 95 16 131/74 97 Room Air 05/31/17 18:12 98.2 Orders Beta Hcg (Quant/Titer) (05/31/17 22:41) Complete Blood Count With Diff (05/31/17 22:41) Basic Metabolic Panel (Bmp) (05/31/17 22:41) Iv Access Insert/Monitor (05/31/17 22:41) Ecg Monitoring (05/31/17 22:41) Oximetry (05/31/17 22:41) Labs Laboratory Tests Test 05/31/17 22:55 White Blood Count 10.5 TH/MM3 Red Blood Count 4.31 MIL/MM3 Hemoglobin 12.3 GM/DL Hematocrit 36.3 % Mean Corpuscular Volume 84.3 FL Mean Corpuscular Hemoglobin 28.5 PG Mean Corpuscular Hemoglobin 33.8 % Concent Red Cell Distribution Width 15.6 % Platelet Count 288 TH/MM3 Mean Platelet Volume 7.8 FL Neutrophils (%) (Auto) 57.7 % Lymphocytes (%) (Auto) 35.9 % Monocytes (%) (Auto) 4.7 % Eosinophils (%) (Auto) 1.4 % Basophils (%) (Auto) 0.3 % Neutrophils # (Auto) 6.0 TH/MM3 Lymphocytes # (Auto) 3.8 TH/MM3 Monocytes # (Auto) 0.5 TH/MM3 Eosinophils # (Auto) 0.1 TH/MM3 Basophils # (Auto) 0.0 TH/MM3 CBC Comment DIFF FINAL Differential Comment Sodium Level 135 MEQ/L Potassium Level 3.8 MEQ/L Chloride Level 103 MEQ/L Carbon Dioxide Level 24.0 MEQ/L Anion Gap 8 MEQ/L Blood Urea Nitrogen 9 MG/DL Creatinine 0.52 MG/DL Estimat Glomerular Filtration 133 ML/MIN Rate Random Glucose 213 MG/DL Calcium Level 8.5 MG/DL Human Chorionic Gonadotropin, 319 MIU/ML Quant MDM Medical Decision Making Medical Screen Exam Complete: Yes Emergency Medical Condition: Yes Medical Record Reviewed: Yes Differential Diagnosis Early that is threatened, versus miscarriage. Narrative Course During the course of the patients emergency department visit, the patients history, examination, and differential diagnosis were reviewed with the patient. The patient had IV access obtained and blood work sent for analysis. The patient was placed on a cardiac cath technician with oximetry and blood pressure monitoring. The patient's electronic medical record was reviewed. The patient' s quantitative beta hCG on May 29 was 1149. This will be repeated at this time to assess for further decline of this value. The patient's CBC will also be reevaluated due to the continued bleeding to assess for possible anemia. The patients laboratory studies were reviewed and remarkable for a CBC that is within normal limits. Basic metabolic profile shows a sodium of 135, glucose 213, quantitative beta hCG has decreased to 319. The patient was instructed to follow-up with her WINTER INTERN for continued management. The patient is instructed to have her quantitative beta hCG repeated to assess that it is going down to 0. The patient is resting comfortably and feels better, is alert and in no distress. The patients results and examination findings were discussed with the patient. The repeat examination is unremarkable and benign. The history, exam, diagnostic testing, and current condition do not suggest any significant pathology to warrant further testing, continued ED treatment, admission, or surgical evaluation at this point. The vital signs have been stable. The patient does not have uncontrollable pain, intractable vomiting, or other significant symptoms. The patient's condition is stable and appropriate for discharge. The patient will pursue further outpatient evaluation with a primary care physician or other designated or consulting physician as indicated in the discharge instructions. The patient expressed understanding and was agreeable with this plan. Diagnosis Primary Impression: Spontaneous miscarriage Referrals: Pullboat Engineer 1 week Patient Instructions: General Instructions, Miscarriage (ED) Med/Other Pt SpecificInfo: No Meds Exist/No RX given Disposition: 01 DISCHARGE HOME Condition: Stable Odalys Terrazas MD May 31, 2017 22:53
[2017-05-31 22:56] VITALS: RESP 16
[2017-05-31 22:58] VITALS: BP 131/74; PULSE 95; RESP 16; O2SAT 97
[2017-05-31 23:07] LABS: BASOPHIL % 0.3 % (0.0-2.0); EOSINOPHIL # 0.1 TH/MM3 (0-0.4); EOSINOPHIL % 1.4 % (0.0-4.0); HEMATOCRIT 36.3 % (35.0-46.0); HEMO FLAGS DIFF FINAL; LYMPH % 35.9 % (9.0-44.0); LYMPHOCYTE # 3.8 TH/MM3 (1.0-4.8); MEAN CELL VOLUME 84.3 FL (80.0-100.0); MEAN CORPUSCULAR HEMOGLOBIN 28.5 PG (27.0-34.0); MEAN CORPUSCULAR HGB CONC 33.8 % (32.0-36.0); MONO % 4.7 % (0.0-8.0); NEUT % 57.7 % (16.0-70.0); PLATELET COUNT 288 TH/MM3 (150-450); RED BLOOD COUNT 4.31 MIL/MM3 (4.00-5.30); RED CELL DISTRIBUTION WIDTH 15.6 % (11.6-17.2); WHITE BLOOD COUNT 10.5 TH/MM3 (4.0-11.0)
[2017-05-31 23:32] LABS: POTASSIUM 3.8 MEQ/L (3.5-5.1)
== END 2017-06-01 00:28 | disposition home or self-care (01) ==
LOC: NEPE 18:10
DX: O03.9 Complete or unspecified spontaneous abortion without complication (principal); O24.911 Unspecified diabetes mellitus in pregnancy, first trimester; K21.9 Gastro-esophageal reflux disease without esophagitis; Z34.91 Encounter for supervision of normal pregnancy, unspecified, first trimester
CPT/HCPCS: 80048; 84702; 85025; 99284

== ENCOUNTER 2017-11-25 16:12 | Emergency (ER) | payer MEDICAID ==
[~2017-11-25] VITALS: Ht 165.1 cm; Wt 88.6 kg
[~2017-11-25 16:12] MED LIST changes: +MELO15TA20 PO; -PREN29TA PO
[2017-11-25 16:14] VITALS: BP 160/75; PULSE 73; RESP 16; TEMP 98.8; O2SAT 100
[2017-11-25 17:23] LABS: AUTOMATED NEUTROPHIL # 6.1 TH/MM3 (1.8-7.7); BASOPHIL % 0.3 % (0.0-2.0); EOSINOPHIL # 0.1 TH/MM3 (0-0.4); HEMATOCRIT 37.8 % (35.0-46.0); HEMOGLOBIN 12.8 GM/DL (11.6-15.3); LYMPH % 27.5 % (9.0-44.0); LYMPHOCYTE # 2.5 TH/MM3 (1.0-4.8); MEAN CELL VOLUME 83.1 FL (80.0-100.0); MEAN CORPUSCULAR HGB CONC 33.7 % (32.0-36.0); MEAN PLATELET VOLUME 7.8 FL (7.0-11.0); MONO % 4.6 % (0.0-8.0); MONOCYTE # 0.4 TH/MM3 (0-0.9); NEUT % 66.6 % (16.0-70.0); PLATELET COUNT 298 TH/MM3 (150-450); RED BLOOD COUNT 4.55 MIL/MM3 (4.00-5.30); RED CELL DISTRIBUTION WIDTH 17.7 % (11.6-17.2); WHITE BLOOD COUNT 9.1 TH/MM3 (4.0-11.0)
[2017-11-25 17:32] LABS: BACTERIA, URINE OCC /hpf; BILIRUBIN, URINE NEG (NEG); BLOOD, URINE NEG (NEG); GLUCOSE,URINE 1000 mg/dL (NEG); KETONE, URINE NEG (NEG); MUCUS URINE FEW /lpf (OCC); NITRITE,URINE NEG (NEG); PH, URINE 5.5 (5.0-8.5); SQUAMOUS EPITHELIAL CELL URINE 1 /hpf (0-5); URINE COLOR LIGHT-YELLOW (YELLW/STRAW); URINE LEUKOCYTE ESTERASE NEG (NEG)
[2017-11-25 17:42] LABS: BICARBONATE 20.5 MEQ/L (21.0-32.0); CALCIUM 9.1 MG/DL (8.5-10.1); CREATININE 0.37 MG/DL (0.50-1.00)
--- NOTE | 2017-11-25 18:14 | PD ---
HPI Chief Complaint: Related Problem Time Seen by Provider: 17:46 Travel History International Travel<30 days: No Contact w/Intl Traveler<30days: No Traveled to known affect area: No History of Present Illness HPI Patient is at approximately 7 weeks GA presents to the ER with abdominal cramping and brown discharge. patient is concerned because she might be having a miscarriage. She states that her last ended in miscarriage. She has 2 living children at home. Denies any vaginal bleeding denies any nausea vomiting diarrhea constipation blood in the stool. She has not tried anything for her pain prior to arrival. Has been taking her vitamins as prescribed. Has not yet established with a TRANSPORTATION MAINTENANCE SPECIALIST. States symptoms are intermittent, cramping, so she will brown discharge, started today. PFSH Past Medical History Diabetes: Yes GERD: Yes Headaches: Yes Immunizations Current: Yes ?: : 5 Para: 3 Miscarriage: 1 Past Surgical History Section: Yes (x2 ) Social History Alcohol Use: No Tobacco Use: No Substance Use: No Allergies-Medications (Allergen,Severity, Reaction): Coded Allergies: No Known Allergies (Unverified Adverse Reaction, Unknown, 11/02/17) Reported Meds & Prescriptions Reported Meds & Active Scripts Active Plus Iron 29-1 mg ( Vit-Iron Carbonyl) 29 Mg Iron-1 Mg Tab 1 Tab PO DAILY Meloxicam 15 Mg Tab 15 Mg PO DAILY Reported Metformin (Metformin HCl) 1,000 Mg Tab 1,000 Mg PO BID With a meal Glipizide 10 Mg Tab 10 Mg PO BIDAC Take 30 minutes before a meal Review of Systems Except as stated in HPI: all other systems reviewed are Neg Physical Exam Narrative GENERAL: Well-developed well-nourished, overweight but in no obvious distress. SKIN: Focused skin assessment warm/dry. HEAD: Atraumatic. Normocephalic. EYES: Pupils equal and round. No scleral icterus. No injection or drainage. ENT: No nasal bleeding or discharge. Mucous membranes pink and moist. NECK: Trachea midline. No JVD. CARDIOVASCULAR: Regular rate and rhythm. No murmur appreciated. RESPIRATORY: No accessory muscle use. Clear to auscultation. Breath sounds equal bilaterally. GASTROINTESTINAL: Abdomen soft, non-tender, nondistended. Hepatic and splenic margins not palpable. GENITOURINARY: Exam performed with female nurse sql developer present all times, cervix is partially 1 cm dilated, membranous tissue seen at cervical os, there is some dried blood representing the ground discharge and she describes in the vaginal vault. No cervical motion tenderness, no bimanual tenderness. No vaginal lesions no cervical lesions seen. MUSCULOSKELETAL: No obvious deformities. No clubbing. No cyanosis. No edema. NEUROLOGICAL: Awake and alert. No obvious cranial nerve deficits. Motor grossly within normal limits. Normal speech. PSYCHIATRIC: Appropriate mood and affect; insight and judgment normal. Data Data Last Documented VS Vital Signs Date Time Temp Pulse Resp B/P (MAP) Pulse Ox O2 Delivery O2 Flow Rate FiO2 11/25/17 20:17 11/25/17 16:14 98.8 73 16 100 Room Air Orders Orders Beta Hcg (Quant/Titer) (11/25/17 16:27) Complete Blood Count With Diff (11/25/17 16:27) Basic Metabolic Panel (Bmp) (11/25/17 16:27) Urinalysis - C+S If Indicated (11/25/17 16:27) Ed Urine Pregnancytest Poc (11/25/17 16:27) Ed Poc Ultrasound (11/25/17 ) Wet Prep Profile (11/25/17 17:51) Gc And Chlamydia Pcr (11/25/17 17:51) Acetaminophen (Tylenol) (11/25/17 20:00) Ed Discharge Order (11/25/17 20:04) Labs Laboratory Tests Test 11/25/17 16:39 11/25/17 17:51 11/25/17 20:05 White Blood Count 9.1 TH/MM3 Red Blood Count 4.55 MIL/MM3 Hemoglobin 12.8 GM/DL Hematocrit 37.8 % Mean Corpuscular Volume 83.1 FL Mean Corpuscular Hemoglobin 28.0 PG Mean Corpuscular Hemoglobin Concent 33.7 % Red Cell Distribution Width 17.7 % Platelet Count 298 TH/MM3 Mean Platelet Volume 7.8 FL Neutrophils (%) (Auto) 66.6 % Lymphocytes (%) (Auto) 27.5 % Monocytes (%) (Auto) 4.6 % Eosinophils (%) (Auto) 1.0 % Basophils (%) (Auto) 0.3 % Neutrophils # (Auto) 6.1 TH/MM3 Lymphocytes # (Auto) 2.5 TH/MM3 Monocytes # (Auto) 0.4 TH/MM3 Eosinophils # (Auto) 0.1 TH/MM3 Basophils # (Auto) 0.0 TH/MM3 CBC Comment DIFF FINAL Differential Comment Urine Color LIGHT-YELLOW Urine Turbidity CLEAR Urine pH 5.5 Urine Specific [place] 1.008 Urine Protein NEG mg/dL Urine Glucose (UA) 1000 mg/dL Urine Ketones NEG mg/dL Urine Occult Blood NEG Urine Nitrite NEG Urine Bilirubin NEG Urine Urobilinogen LESS THAN 2.0 MG/DL Urine Leukocyte Esterase NEG Urine RBC LESS THAN 1 /hpf Urine WBC 1 /hpf Urine Squamous Epithelial Cells 1 /hpf Urine Bacteria OCC /hpf Urine Mucus FEW /lpf Microscopic Urinalysis Comment CULT NOT INDICATED Blood Urea Nitrogen 8 MG/DL Creatinine 0.37 MG/DL Random Glucose 195 MG/DL Calcium Level 9.1 MG/DL Sodium Level 134 MEQ/L Potassium Level 3.5 MEQ/L Chloride Level 104 MEQ/L Carbon Dioxide Level 20.5 MEQ/L Anion Gap 10 MEQ/L Estimat Glomerular Filtration Rate 198 ML/MIN Human Chorionic Gonadotropin, Quant 83463 MIU/ML Clue Cells (Wet Prep) NONE SEEN Vaginal Trichomonas (Wet Prep) NONE SEEN Vaginal Yeast (Wet Prep) NONE SEEN Chlamydia trachomatis DNA (PCR) NOT DETECTED Neisseria gonorrhoeae DNA (PCR) NOT DETECTED MDM Medical Decision Making Medical Screen Exam Complete: Yes Emergency Medical Condition: Yes Differential Diagnosis Threatened miscarriage, Rh mismatch unlikely, vaginal bleeding and . Narrative Course Patient roomed emergency department, she does have confirmed intrauterine on bedside ultrasound but exam findings on internal exam certainly consistent with an inevitable . Patient was counseled closely, I think that given her physical exam findings as probably represents an inevitable coupled with her history which sounds like uterine contractions. I recommended that she return to the emergency department in 48 hours for repeat beta hCG to confirm the diagnosis. Until that time she is on pelvic rest, vitamins, discussed first trimester care including abstinence from cigarette smoking alcohol tobacco caffeine. She verbalized understanding stitches are to be doing these things. Discussed return to ED criteria. She stable for discharge. Rh+ on previous presentation to the emergency department. Procedures Procedure Narrative BEDSIDE ULTRASOUND: Transabdominal views were obtained of the uterus, double decidual sign and yolk sac seen internally. This is consistent with an early intrauterine . No free fluid seen in the pelvis. Diagnosis Primary Impression: Threatened miscarriage Referrals: Yash Fabian MD Med/Other Pt SpecificInfo: Prescription(s) given Scripts Vit-Iron Carbonyl ( Plus Iron 29-1 mg) 29 Mg Iron-1 Mg Tab 1 TAB PO DAILY for Nutritional Supplement, #30 TAB 9 Refills Prov: Dane Damico MD 11/25/17 Disposition: 01 DISCHARGE HOME Condition: Stable Dane Damico MD Nov 25, 2017 18:14
[2017-11-25] MEDS ORDERED: ACETAMINOPHEN 325 MG TAB PO ONE (20:00)
[2017-11-25] MEDS ORDERED: PREN29TA PO (20:02)
== END 2017-11-25 20:26 | disposition home or self-care (01) ==
LOC: NEPD 16:12
DX: O20.0 Threatened abortion (principal); O24.311 Unspecified pre-existing diabetes mellitus in pregnancy, first trimester; E11.9 Type 2 diabetes mellitus without complications; O99.611 Diseases of the digestive system complicating pregnancy, first trimester; K21.9 Gastro-esophageal reflux disease without esophagitis; Z3A.01 Less than 8 weeks gestation of pregnancy
CPT/HCPCS: 80048; 81001; 84702; 84703; 85025; 87210; 87491; 87591; 99284